=== PATIENT | male | born 1935 | race Caucasian/White ===

== ENCOUNTER 2017-07-27 08:50 | Emergency (ER) | payer MEDICARE, OTHER ==
[~2017-07-27] VITALS: Ht 177.8 cm; Wt 86.4 kg
[~2017-07-27 08:50] MED LIST: ASPI81 PO; ATEN-100 PO; BUSP5TAB3 PO; FISH1000 PO; MEVA40TA PO; TAB-TAB PO; VIT250TA PO
[2017-07-27 08:54] VITALS: BP 162/95; PULSE 67; RESP 18; TEMP 97.6; O2SAT 97
[2017-07-27] MEDS ORDERED: VITATAB56 PO (09:28)
[2017-07-27] MEDS ORDERED: FAMO1TAB37 PO (09:28)
[2017-07-27] MEDS ORDERED: OMEGCAP PO (09:28)
[2017-07-27] MEDS ORDERED: LOVA40TA PO (09:28)
[2017-07-27] MEDS ORDERED: ATEN25TA PO (09:28)
[2017-07-27] MEDS ORDERED: ASPI-516 CHEW (09:28)
[2017-07-27] MEDS ORDERED: HYDR25TA5 PO (09:28)
[2017-07-27 09:30] VITALS: BP 162/88; PULSE 68; RESP 18; O2SAT 97
--- NOTE | 2017-07-27 09:40 | PD ---
HPI Chief Complaint: Nosebleed Time Seen by Provider: 09:28 Travel History International Travel<30 days: No Contact w/Intl Traveler<30days: No Traveled to known affect area: No History of Present Illness HPI This 81-year-old male presents with complaint that he has had several nosebleeds over the last few weeks. Going on for about 3 weeks. He is visiting from [place]. He has had at least 8 nosebleeds over that period of time. He has not had trouble with nosebleeds prior to that. He does have a history of hypertension and has been on atenolol 25 mg daily. He called his physician about the nosebleeds and he added hydrochlorothiazide because of elevations of his blood pressure. He took the hydrochlorothiazide yesterday but did not take the atenolol because it was not clear to him if he was supposed to continue it. He takes a baby aspirin daily but is never had an MO or stroke. 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[place]) Endocrine: No Genitourinary: Yes Hypertension: Yes Psychiatric: No Respiratory: No Immunizations Current: Yes (SHINGLES IMMUN.) Influenza Vaccination: Yes Past Surgical History Genitourinary Surgery: Yes (PROSTATECTOMY) Social History Alcohol Use: Yes (2/DAY) Tobacco Use: No Substance Use: No Allergies-Medications (Allergen,Severity, Reaction): Coded Allergies: No Known Allergies (Verified , 06/22/10) Reported Meds & Prescriptions Reported Meds & Active Scripts Active Reported Vitamin D-400 (Cholecalciferol) 400 Unit Tab 400 Units PO DAILY [place]-3 Fish Oil/Vitamin (Fish Oil-Cholecalciferol) 1,000-1,000 Mg Cap 1 Cap PO DAILY Hydrochlorothiazide 25 Mg Tab 25 Mg PO DAILY Pepcid (Famotidine) 20 Mg Tab 20 Mg PO BID Lovastatin 40 Mg Tab 40 Mg PO DAILY Atenolol 25 Mg Tab 25 Mg PO DAILY Aspirin 81 Mg Chew 81 Mg CHEW DAILY Review of Systems General / Constitutional: No: Fever, Chills Eyes: No: Diploplia, Blurred Vision HENT: Positive: Nosebleed, No: Headaches Cardiovascular: No: Chest Pain or Discomfort, Palpitations Respiratory: No: Cough, Shortness of Breath Gastrointestinal: No: Nausea, Vomiting Genitourinary: No: Frequency Musculoskeletal: No: Myalgias Skin: No Rash Physical Exam Narrative GENERAL: Well-developed male SKIN: Focused skin assessment warm/dry. HEAD: Atraumatic. Normocephalic. EYES: Pupils equal and round. No scleral icterus. No injection or drainage. ENT: No nasal bleeding or discharge. There is some dried blood in the right nostril. Turbinates are swollen and erythematous mucous membranes pink and moist. NECK: Trachea midline. No JVD. CARDIOVASCULAR: Regular rate and rhythm. No murmur appreciated. RESPIRATORY: No accessory muscle use. Clear to auscultation. Breath sounds equal bilaterally. GASTROINTESTINAL: Abdomen soft, non-tender, nondistended. Hepatic and splenic margins not palpable. MUSCULOSKELETAL: No obvious deformities. No clubbing. No cyanosis. No edema. NEUROLOGICAL: Awake and alert. No obvious cranial nerve deficits. Motor grossly within normal limits. Normal speech. PSYCHIATRIC: Appropriate mood and affect; insight and judgment normal. Data Data Last Documented VS Vital Signs Date Time Temp Pulse Resp B/P (MAP) Pulse Ox O2 Delivery O2 Flow Rate FiO2 07/27/17 09:30 68 18 162/88 (112) 97 Room Air 07/27/17 08:54 97.6 Orders Orders Complete Blood Count With Diff (07/27/17 09:38) Basic Metabolic Panel (Bmp) (07/27/17 09:38) Prothrombin Time / Inr (Pt) (07/27/17 09:38) Act Partial Throm Time (Ptt) (07/27/17 09:38) Atenolol (Tenormin) (07/27/17 09:45) Labs Laboratory Tests Test 07/27/17 09:50 White Blood Count 6.9 TH/MM3 Red Blood Count 4.45 MIL/MM3 Hemoglobin 15.5 GM/DL Hematocrit 45.5 % Mean Corpuscular Volume 102.3 FL Mean Corpuscular Hemoglobin 34.8 PG Mean Corpuscular Hemoglobin Concent 34.0 % Red Cell Distribution Width 12.7 % Platelet Count 220 TH/MM3 Mean Platelet Volume 7.6 FL Neutrophils (%) (Auto) 64.5 % Lymphocytes (%) (Auto) 21.2 % Monocytes (%) (Auto) 10.9 % Eosinophils (%) (Auto) 2.8 % Basophils (%) (Auto) 0.6 % Neutrophils # (Auto) 4.4 TH/MM3 Lymphocytes # (Auto) 1.5 TH/MM3 Monocytes # (Auto) 0.8 TH/MM3 Eosinophils # (Auto) 0.2 TH/MM3 Basophils # (Auto) 0.0 TH/MM3 CBC Comment DIFF FINAL Differential Comment Prothrombin Time 10.2 SEC Prothromb Time International Ratio 1.0 RATIO Activated Partial Thromboplast Time 24.3 SEC Blood Urea Nitrogen 19 MG/DL Creatinine 0.98 MG/DL Random Glucose 93 MG/DL Calcium Level 9.2 MG/DL Sodium Level 140 MEQ/L Potassium Level 4.0 MEQ/L Chloride Level 105 MEQ/L Carbon Dioxide Level 27.4 MEQ/L Anion Gap 8 MEQ/L Estimat Glomerular Filtration Rate 74 ML/MIN MDM Medical Decision Making Medical Screen Exam Complete: Yes Emergency Medical Condition: Yes Medical Record Reviewed: Yes Differential Diagnosis Differential includes coagulopathy, epistaxis, hypertension Narrative Course Platelet count is 2 20,000. INR is normal. There is no evidence of coagulopathy. I will recommend the patient take both the atenolol and the hydrochlorothiazide. I have suggested that he could hold his aspirin for a couple of weeks. Diagnosis Primary Impression: Epistaxis Additional Instructions: Take both atenolol and hydrochlorothiazide for hypertension Disposition: 01 DISCHARGE HOME Condition: Stable Gio Chambers MD Jul 27, 2017 09:40
[2017-07-27] MEDS ORDERED: ATENOLOL 25 MG TAB PO ONE (09:45)
[2017-07-27 10:05] LABS: AUTOMATED NEUTROPHIL # 4.4 TH/MM3 (1.8-7.7); BASOPHIL % 0.6 % (0.0-2.0); EOSINOPHIL # 0.2 TH/MM3 (0-0.4); EOSINOPHIL % 2.8 % (0.0-4.0); HEMATOCRIT 45.5 % (39.0-51.0); HEMOGLOBIN 15.5 GM/DL (13.0-17.0); LYMPH % 21.2 % (9.0-44.0); LYMPHOCYTE # 1.5 TH/MM3 (1.0-4.8); MEAN CELL VOLUME 102.3 FL (80.0-100.0); MEAN CORPUSCULAR HEMOGLOBIN 34.8 PG (27.0-34.0); MEAN PLATELET VOLUME 7.6 FL (7.0-11.0); MONO % 10.9 % (0.0-8.0); MONOCYTE # 0.8 TH/MM3 (0-0.9); NEUT % 64.5 % (16.0-70.0); PLATELET COUNT 220 TH/MM3 (150-450); RED BLOOD COUNT 4.45 MIL/MM3 (4.50-5.90); RED CELL DISTRIBUTION WIDTH 12.7 % (11.6-17.2); WHITE BLOOD COUNT 6.9 TH/MM3 (4.0-11.0)
[2017-07-27 10:17] LABS: PROTHROMBIN TIME - PATIENT 10.2 SEC (9.8-11.6)
[2017-07-27 10:19] LABS: CALCIUM 9.2 MG/DL (8.5-10.1)
[2017-07-27 10:20] LABS: BICARBONATE 27.4 MEQ/L (21.0-32.0)
[2017-07-27 10:23] LABS: CREATININE 0.98 MG/DL (0.60-1.30)
[2017-07-27 10:44] VITALS: BP 163/97; PULSE 68; RESP 16; O2SAT 99
== END 2017-07-27 11:15 | disposition home or self-care (01) ==
LOC: PHED 08:50
DX: R04.0 Epistaxis (principal); I10 Essential (primary) hypertension; E78.00 Pure hypercholesterolemia, unspecified; Z79.82 Long term (current) use of aspirin; Z79.899 Other long term (current) drug therapy
CPT/HCPCS: 80048; 85025; 85610; 85730; 99283